=== PATIENT | male | born 1940 | race Two or more races ===

== ENCOUNTER 2020-11-12 08:19 | Outpatient (CLI) | payer OTHER | END 2020-11-12 08:27 | disposition home or self-care (01) | LOC: RX STUDY 08:19 | PROVIDERS: ATTEND Internal Medicine Allergy & Immunology | DX: K44.9 Diaphragmatic hernia without obstruction or gangrene (principal); K22.8 Other specified diseases of esophagus; M47.892 Other spondylosis, cervical region; R05 Cough ==

== ENCOUNTER 2023-12-07 14:01 | Outpatient (CLI) | payer OTHER | END 2023-12-07 14:04 | disposition home or self-care (01) | LOC: SONOGRAMA 14:01 | PROVIDERS: ATTEND Pathology Anatomic Pathology & Clinical Pathology | DX: D34 Benign neoplasm of thyroid gland (principal); E07.89 Other specified disorders of thyroid; E04.2 Nontoxic multinodular goiter ==